=== PATIENT | female | born 1960 | race Caucasian/White ===

== ENCOUNTER 2023-12-05 17:03 | Emergency (ER) | payer MEDICARE, MEDICAID ==
[~2023-12-05] VITALS: Ht 160 cm; Wt 67.0 kg
[2023-12-05 17:06] VITALS: BP 152/82; PULSE 100; O2SAT 95
[2023-12-05 18:30] VITALS: RESP 14
[2023-12-05] MEDS: HYDROcodone/acetaminophen 5mg/325mg tablet PO ONE (18:30)
[2023-12-05 18:31] VITALS: TEMP 98
== END 2023-12-05 18:33 | disposition home or self-care (01) ==
LOC: ER 17:04
DX: S66.911A Strain of unspecified muscle, fascia and tendon at wrist and hand level, right hand, initial encounter (principal); W19.XXXA Unspecified fall, initial encounter; Y93.89 Activity, other specified; Y92.89 Other specified places as the place of occurrence of the external cause; Y99.8 Other external cause status
CPT/HCPCS: 29125; 73090; 73110; 99284